=== PATIENT | female | born 1945 | race Caucasian/White ===

== ENCOUNTER 2016-08-05 21:30 | Emergency (ER) | payer OTHER ==
[2016-08-05 22:03] LABS: BASOPHIL 0.7 % (0-2); EOSINOPHIL 1.8 % (0-7); HCT 43.7 % (37.0-47.0); HGB 14.9 g/dl (12.5-16.0); LYMPHOCYTE 47.6 % (15-48); MCH 29.7 pg (25.0-31.0); MCHC 34.1 g/dL (32.0-36.0); MCV 87.1 fL (78.0-100.0); MONOCYTE 10.4 % (0-12); MPV 9.9 fL (6.0-9.5); NEUTROPHIL 39.5 % (41-80); PLT 322 K/uL (150-400); RBC 5.02 M/uL (4.20-5.40); RDW 13.2 % (11.5-14.0); WBC 5.7 K/uL (4.0-10.5)
[2016-08-05 22:07] LABS: INR 0.91 (0.9-1.2); PROTHROMBIN TIME 11.9 SECONDS (11.7-14.0); PTT 30.3 SECONDS (23.2-31.4)
[2016-08-05 22:17] LABS: CKMB 2.47 ng/mL (0.97-4.94); MYOGLOBIN 31 ng/mL (26-65); TROPONIN T < 0.010 ng/mL
[2016-08-05 22:19] LABS: ALBUMIN 4.5 g/dL (3.4-4.8); BILIRUBIN - TOTAL 0.4 mg/dL (0.1-1.0); CREATININE 0.9 mg/dL (0.5-1.0); GLOBULIN (CALCULATION) 2.7 g/dL (2.2-4.2); POTASSIUM 3.6 mmol/L (3.5-5.1); TOTAL PROTEIN 7.2 g/dL (6.4-8.3)
[2016-08-05 22:51] LABS: BILIRUBIN NEGATIVE (NEGATIVE); BLOOD NEGATIVE Ery/uL (NEGATIVE); CLARITY SLIGHTLY HAZY (CLEAR); COLOR YELLOW (YELLOW); GLUCOSE (U) NORMAL (NORMAL); KETONE (U) NEGATIVE (NEGATIVE); LEUKOCYTES 1+ Leu/uL (NEGATIVE); NITRITE NEGATIVE (NEGATIVE); PROTEIN NEGATIVE (NEGATIVE); UROBILINOGEN 0.2 mg/dL (0.2-1.0)
[2016-08-05 22:55] LABS: BACTERIA 1+
[2016-08-05 22:59] LABS: AMPHETAMINES NEGATIVE (NEGATIVE); BARBITURATES NEGATIVE (NEGATIVE); COCAINE NEGATIVE (NEGATIVE); MARIJUANA (THC) NEGATIVE (NEGATIVE); METHADONE NEGATIVE (NEGATIVE); TRICYCLIC ANTIDEPRESSANT NEGATIVE (NEGATIVE)
[2016-08-05 23:00] LABS: BENZODIAZEPINES POSITIVE (NEGATIVE)
== END 2016-08-06 03:56 | disposition other institution (70) ==
LOC: FER 21:30
PROVIDERS: Emergency Medicine Emergency Medical Services
DX: R53.1 Weakness (principal); H54.7 Unspecified visual loss; G51.0 Bell's palsy; R29.700 NIHSS score 0; I10 Essential (primary) hypertension; E78.5 Hyperlipidemia, unspecified; Z86.73 Personal history of transient ischemic attack (TIA), and cerebral infarction without residual deficits; Z88.0 Allergy status to penicillin; Z88.2 Allergy status to sulfonamides; Z91.040 Latex allergy status; Z79.82 Long term (current) use of aspirin; Z79.899 Other long term (current) drug therapy
CPT/HCPCS: 36415; 70450; 71010; 80053; 80061; 80305; 81001; 82550; 82553; 83874; 84484; 85025; 85610; 85730; 93005; G0480; J2270; J2405

== ENCOUNTER 2021-09-23 13:07 | Emergency (ER) | payer OTHER | END 2021-09-23 22:55 | disposition home or self-care (01) | LOC: FER 13:07 | DX: S52.511A Displaced fracture of right radial styloid process, initial encounter for closed fracture (principal); Z88.0 Allergy status to penicillin; Z88.2 Allergy status to sulfonamides; Z91.040 Latex allergy status; W19.XXXA Unspecified fall, initial encounter; Y92.009 Unspecified place in unspecified non-institutional (private) residence as the place of occurrence of the external cause | CPT/HCPCS: 70450; 70486; 71250; 72125; 73110; 73552 ==